=== PATIENT | male | born 1950 | race Caucasian/White ===

== ENCOUNTER → 2024-04-05 09:10 | Outpatient (REF) | payer MEDICARE, SELFPAY ==
[2024-04-05 12:35] LABS: % Basophils 0.6 % (0-2); % Eosinophils 2.9 % (0-6); % Immature Granulocytes 1.4 % (0-0.5); % Lymphocytes 42.3 % (20.5-51.1); % Monocytes 8.9 % (1.7-9.3); % Neutrophils 43.9 % (42.2-75.2); Absolute Eosinophils 0.2 10^3/uL (0-0.7); Absolute Immature Granulocytes 0.1 10^3/uL (0-0.05); Absolute Lymphocytes 2.7 10^3/uL (1.2-3.4); Absolute Monocytes 0.6 10^3/uL (0.1-0.6); Absolute Neutrophils 2.8 10^3/uL (1.4-6.5); Hematocrit 43.9 % (39.0-52.0); Hemoglobin 15.2 g/dL (13.0-18.0); Mean Corp Hgb Conc. 34.6 g/dL (33.0-37.0); Mean Corpuscular Hgb 31.4 pg (27.0-31.0); Mean Corpuscular Volume 90.7 fL (80.0-94.0); Mean Platelet Volume 9.8 fL (7.4-10.4); Nucleated Red Blood Cells % 0 % (-); Platelet Count 186 10^3/uL (130-400); Red Blood Cell Count 4.84 10^6/uL (4.70-6.10); Red Cell Dist. Width 12.9 % (11.5-14.5); White Blood Cell Count 6.3 10^3/uL (4.8-10.8)
[2024-04-05 12:51] LABS: Glycohemoglobin (HgbA1c) 6.3 % (4.0-5.6)
[2024-04-05 13:06] LABS: ALT (SGPT) 33 U/L (0-50); AST (SGOT) 35 U/L (17-59); Albumin 4.2 g/dl (3.5-5.0); Alkaline Phosphatase 56 U/L (38-126); Blood Urea Nitrogen 19 mg/dl (9-20); Calcium 9.2 mg/dl (8.4-10.2); Carbon Dioxide 29 mmol/L (22-30); Chloride 101 mmol/L (98-107); Glucose 115 mg/dl (70-99); HDL Cholesterol 53 mg/dl; LDL Cholesterol, Calculated 85 mg/dl; Potassium 4.5 mmol/L (3.5-5.1); Sodium 135 mmol/L (135-145); Total Bilirubin 0.8 mg/dl (0.2-1.3); Total Cholesterol 167 mg/dl (50-199); Total Protein 6.8 g/dl (6.3-8.2); Triglyceride 146 mg/dl (10-149); Uric Acid 7.2 mg/dl (3.5-8.5); Very Low Density Lipoprotein 29 mg/dl (0-30); eGFR > 60.00
== END ==
LOC: HWLAB 09:10
PROVIDERS: ATTENDING PHYSICIAN Internal Medicine
DX: E78.5 Hyperlipidemia, unspecified (principal); R73.01 Impaired fasting glucose; Z87.39 Personal history of other diseases of the musculoskeletal system and connective tissue
CPT/HCPCS: 36415; 80053; 80061; 83036; 84550; 85025

== ENCOUNTER → 2024-05-21 18:12 | Outpatient (REF) | payer MEDICARE, SELFPAY | LOC: PAVMRI 18:12 | PROVIDERS: ATTENDING PHYSICIAN Specialist; FAMILY PHYSICIAN Internal Medicine | DX: M99.63 Osseous and subluxation stenosis of intervertebral foramina of lumbar region (principal) | CPT/HCPCS: 72148 ==

== ENCOUNTER → 2024-09-22 13:35 | Outpatient (REF) | payer MEDICARE, SELFPAY ==
[2024-09-22 15:25] LABS: % Basophils 0.8 % (0-2); % Eosinophils 3.6 % (0-6); % Immature Granulocytes 0.4 % (0-0.5); % Neutrophils 47.2 % (42.2-75.2); Absolute Eosinophils 0.2 10^3/uL (0-0.7); Absolute Monocytes 0.5 10^3/uL (0.1-0.6); Absolute Neutrophils 2.4 10^3/uL (1.4-6.5); Hematocrit 38.7 % (39.0-52.0); Hemoglobin 13.7 g/dL (13.0-18.0); Mean Corp Hgb Conc. 35.4 g/dL (33.0-37.0); Mean Corpuscular Hgb 31.7 pg (27.0-31.0); Mean Corpuscular Volume 89.6 fL (80.0-94.0); Mean Platelet Volume 9.8 fL (7.4-10.4); Nucleated Red Blood Cells % 0 % (-); Platelet Count 170 10^3/uL (130-400); Red Blood Cell Count 4.32 10^6/uL (4.70-6.10); Red Cell Dist. Width 12.7 % (11.5-14.5)
[2024-09-22 15:36] LABS: Urine Albumin Negative (Neg - Trace); Urine Bilirubin Negative (Negative); Urine Character Clear (Clear); Urine Color Yellow; Urine Glucose Negative (Negative); Urine Ketone Negative (Negative); Urine Leukocyte Negative (Negative); Urine Nitrite Negative (Negative); Urine Occult Blood Negative (Negative); Urine Specific Gravity 1.015 (<1.030); Urine Urobilinogen Negative (Neg - 1+)
[2024-09-22 15:44] LABS: ALT (SGPT) 31 U/L (0-50); AST (SGOT) 42 U/L (17-59); Albumin 4.2 g/dl (3.5-5.0); Alkaline Phosphatase 46 U/L (38-126); Blood Urea Nitrogen 14 mg/dl (9-20); Calcium 9.2 mg/dl (8.4-10.2); Carbon Dioxide 27 mmol/L (22-30); Chloride 102 mmol/L (98-107); Glucose 141 mg/dl (70-99); Potassium 4.2 mmol/L (3.5-5.1); Sodium 141 mmol/L (135-145); Total Bilirubin 0.6 mg/dl (0.2-1.3); Total Protein 6.5 g/dl (6.3-8.2); eGFR > 60.00
[2024-09-22 16:03] LABS: NT-proBNP 327 pg/ml
== END ==
LOC: HWLAB 13:35
PROVIDERS: ATTENDING PHYSICIAN Nurse Practitioner Family
DX: R60.0 Localized edema (principal)
CPT/HCPCS: 36415; 80053; 81003; 83880; 85025

== ENCOUNTER → 2024-12-24 08:54 | Outpatient (REF) | payer MEDICARE, SELFPAY ==
[2024-12-24 12:21] LABS: ALT (SGPT) 31 U/L (0-50); AST (SGOT) 38 U/L (17-59); Albumin 4.2 g/dl (3.5-5.0); Alkaline Phosphatase 64 U/L (38-126); Blood Urea Nitrogen 13 mg/dl (9-20); Carbon Dioxide 30 mmol/L (22-30); Chloride 98 mmol/L (98-107); Glucose 137 mg/dl (70-99); HDL Cholesterol 52 mg/dl; LDL Cholesterol, Calculated 112 mg/dl; Potassium 4.4 mmol/L (3.5-5.1); Sodium 136 mmol/L (135-145); Total Cholesterol 190 mg/dl (50-199); Total Protein 6.9 g/dl (6.3-8.2); Triglyceride 133 mg/dl (10-149); Very Low Density Lipoprotein 26 mg/dl (0-30); eGFR > 60.00
[2024-12-24 12:55] LABS: Glycohemoglobin (HgbA1c) 6.5 % (4.0-5.6)
[2024-12-24 13:23] LABS: Microalbumin, Random Urine 0.6 mg/dl (0.6-1.7); Microalbumin/creatinine Ratio 7.7 mg/g
== END ==
LOC: HWLAB 08:54
PROVIDERS: ATTENDING PHYSICIAN Internal Medicine
DX: E78.5 Hyperlipidemia, unspecified (principal); E11.9 Type 2 diabetes mellitus without complications
CPT/HCPCS: 36415; 80053; 80061; 82043; 82570; 83036

== ENCOUNTER 2025-02-17 15:51 | Emergency (ER) | payer MEDICARE, SELFPAY ==
[2025-02-17 15:54] VITALS: BP 161/109
--- NOTE | 2025-02-17 16:36 | ED.GENMED ---
History of Present Illness
General
Chief Complaint: Nose Bleed
Source: patient
Exam Limitations: none
Time Seen by Provider: 02/17/25 16:23
Nursing documentation reviewed up to this point in time: agreed with
History of Present Illness
History of Present Illness:
Patient to ED for eval of spontaneous nosebleed. States bleeding started while at work. No history of nose bleeds. No history of trauma. He is on ELiquis. Brought to ED by spouse for eval.
Past History
Past History
ED Past Medical History: HTN, Hypercholesterolemia, Psychiatric (Anxiety) and Other (Factor 5 Leiden, PE may 2019)
ED Past Surgical History: Bowel resection and Orthopedic (Multiple orthopedic surgeries)
Patient has exhibited threatening behavior?: No
PSI?: No
Social History
Tobacco: Non-smoker
Alcohol: Occasional
Drug: None
Personal:
Living: with family
Review of Systems
Review of Systems
Allergies reviewed?: Yes
All Other Systems: ROS reviewed and negative except as documented in HPI and ROS
Constitutional: Reports no symptoms
EENT: Reports other (nose bleed)
Respiratory: Reports no symptoms
Cardiac: Reports no symptoms
ABD/GI: Reports no symptoms
: Reports no symptoms
Musculoskeletal: Reports no symptoms
Skin: Reports no symptoms
Neurological: Reports no symptoms
Psychiatric: Reports no symptoms
Phy Exam
General Physical Exam
General Presentation: well appearing
General age: appears stated age
General Skin: warm and dry
General Habitus: normal
General Mental: alert
General Hydration: appears well hydrated
ENT Exam
ENT Exam: other (Right ant. nose bleed.)
Musculoskeletal Exam
Musculoskeletal Exam: full ROM
Skin Exam
Skin Exam: normal color, warm/dry and no rash
Psychiatric Exam
Psychiatric Exam: normal mood/affect
Course
Orders/Labs/Results
Orders:
Orders
02/17/25 16:29
Tranexamic Acid 1,000 mg .ROUTE .STK-MED ONE
Vital Signs
Initial and Last Documented VS:
Initial Vital Signs
Pulse Resp BP Pulse Ox
89 18 161/109 95
02/17/25 15:54 02/17/25 15:54 02/17/25 15:54 02/17/25 15:54
Last Documented Vital Signs
Temp Pulse Resp BP Pulse Ox
98.1 F 75 18 145/90 93
02/17/25 16:50 02/17/25 18:18 02/17/25 15:54 02/17/25 18:18 02/17/25 18:18
Procedures
Nosebleed
Drug treatment: Lidocaine, Epinephrine and Tranexamic Acid
Treatment: local pressure applied and Silver nitrate cautery
Post treatment bleeding: none- good control
Additional information:
Patient packed with TXA soaked gauze. When gauze removed, bleeding started again. Repacked iwth epi/lido soaked gauze and bleeding stopped. Able to identify small site of beeding along distal medial septum. Cauterized with silver nitrate. No
further bleeding while in dept. He his discharged home and will follow up with ENT as needed. Given instructions on s/s to return to ED and he is agreeable to plan.
*Critical Care Note
Total Time (30-74mins, 75-104mins- exclusive of procedures): Not Applicable
ED Attending Note
-
Portions of this chart may have been created with voice recognition software.� Occasional wrong word or��sound alike� substitutions may have occurred due to the inherent limitations of voice recognition software.
Discharge Plan
Departure
Patient Disposition: Home (Routine Discharge)
Date of Disposition: 02/17/25
Time of Disposition: 18:18
Patient with high blood pressure during this ER visit?: No
Condition: Good
Covid-19: Not Applicable
Discharge Problem:
Acute anterior epistaxis
Instructions: Nosebleeds (DC)
Prescriptions:
No Action
atorvastatin 40 MG tablet
40 mg PO DAILY
escitalopram oxalate 10 MG tablet
10 mg PO DAILY
tramadol 50 mg tablet
50 mg PO Q6H PRN (Reason: moderate pain)
Patient Comments:
08/25/2022: last filled 07/01/22, 120 tabs for 30 days from [id number]
metoprolol succinate 25 mg tablet extended release 24 hr
25 mg PO DAILY
apixaban 5 mg Tablet
5 mg PO DAILY
valsartan 40 mg Tablet
40 mg PO DAILY
amoxicillin-pot clavulanate 875-125 mg tablet
1 tab PO Q12H Qty: 14 0RF
Referrals:
Yamileth Poole MD [Family Provider] -
Carroll Serrano MD [Active] - As needed
Activity Restrictions/Additional Instructions:
Return to the emergency department for any bleeding that does not stop within 15-20 minutes of applying pressure
Interventions
Interventions:
*Risk Screen - Suicide Last Done: 02/17/25 15:54
*General Assessment Last Done: 02/17/25 15:54
*Neglect/Abuse Screening Last Done: 02/17/25 15:54
*ED- Fall Risk Assessment Last Done: 02/17/25 18:22
*ED COVID-19 Vaccine History Last Done: 02/17/25 15:54
*Nursing Disposition Last Done: 02/17/25 18:22
ED-EENT Assessment Last Done: 02/17/25 17:32
Discharge Date and Time
Print Language: MARSHALLESE
[2025-02-17 17:32] VITALS: BP 154/93
[2025-02-17 18:18] VITALS: BP 145/90
== END 2025-02-17 18:23 | disposition home or self-care (01) ==
LOC: EMR 15:51
PROVIDERS: EMERGENCY PHYSICIAN Emergency Medicine; FAMILY PHYSICIAN Internal Medicine
DX: R04.0 Epistaxis (principal); I10 Essential (primary) hypertension; E78.00 Pure hypercholesterolemia, unspecified; D68.51 Activated protein C resistance; Z79.01 Long term (current) use of anticoagulants
CPT/HCPCS: 30901; 99282

== ENCOUNTER → 2025-02-28 12:23 | Outpatient (REF) | payer MEDICARE, SELFPAY | LOC: HWRAD 12:23 | PROVIDERS: ATTENDING PHYSICIAN Nurse Practitioner Family; FAMILY PHYSICIAN Internal Medicine | DX: R06.09 Other forms of dyspnea (principal) | CPT/HCPCS: 71046 ==

== ENCOUNTER → 2025-03-07 15:47 | Outpatient (REF) | payer MEDICARE, SELFPAY | LOC: HWRCS 15:47 | PROVIDERS: ATTENDING PHYSICIAN Nurse Practitioner Family | DX: R06.09 Other forms of dyspnea (principal) | CPT/HCPCS: 93306 ==

== ENCOUNTER → 2025-03-23 12:54 | Outpatient (REF) | payer MEDICARE, SELFPAY ==
[2025-03-23 15:58] LABS: % Basophils 0.5 % (0-2); % Eosinophils 1.9 % (0-6); % Immature Granulocytes 0.5 % (0-0.5); % Lymphocytes 24.8 % (20.5-51.1); % Monocytes 7.8 % (1.7-9.3); % Neutrophils 64.5 % (42.2-75.2); Absolute Eosinophils 0.2 10^3/uL (0-0.7); Absolute Monocytes 0.6 10^3/uL (0.1-0.6); Absolute Neutrophils 5.1 10^3/uL (1.4-6.5); Hematocrit 38.8 % (39.0-52.0); Hemoglobin 13.5 g/dL (13.0-18.0); Mean Corp Hgb Conc. 34.8 g/dL (33.0-37.0); Mean Corpuscular Hgb 31.7 pg (27.0-31.0); Mean Corpuscular Volume 91.1 fL (80.0-94.0); Mean Platelet Volume 9.4 fL (7.4-10.4); Nucleated Red Blood Cells % 0 % (-); Platelet Count 226 10^3/uL (130-400); Red Blood Cell Count 4.26 10^6/uL (4.70-6.10); Red Cell Dist. Width 13.9 % (11.5-14.5); White Blood Cell Count 7.9 10^3/uL (4.8-10.8)
[2025-03-23 16:05] LABS: Blood Urea Nitrogen 13 mg/dl (9-20)
== END ==
LOC: RAD 12:54
PROVIDERS: ATTENDING PHYSICIAN Internal Medicine
DX: R68.84 Jaw pain (principal); R22.0 Localized swelling, mass and lump, head; R25.2 Cramp and spasm; Z01.812 Encounter for preprocedural laboratory examination
CPT/HCPCS: 36415; 70491; 82565; 84520; 85025; Q9967

== ENCOUNTER → 2025-04-18 13:05 | Outpatient (REF) | payer MEDICARE, SELFPAY ==
[2025-04-18 15:40] LABS: % Basophils 0.7 % (0-2); % Immature Granulocytes 0.5 % (0-0.5); % Lymphocytes 31.3 % (20.5-51.1); % Monocytes 6.7 % (1.7-9.3); % Neutrophils 58.8 % (42.2-75.2); Absolute Eosinophils 0.1 10^3/uL (0-0.7); Absolute Lymphocytes 1.9 10^3/uL (1.2-3.4); Absolute Monocytes 0.4 10^3/uL (0.1-0.6); Absolute Neutrophils 3.6 10^3/uL (1.4-6.5); Hematocrit 39.7 % (39.0-52.0); Hemoglobin 13.6 g/dL (13.0-18.0); INR 0.98; Mean Corp Hgb Conc. 34.3 g/dL (33.0-37.0); Mean Corpuscular Hgb 31.1 pg (27.0-31.0); Mean Corpuscular Volume 90.6 fL (80.0-94.0); Mean Platelet Volume 9.8 fL (7.4-10.4); Nucleated Red Blood Cells % 0 % (-); PT 13.3 Sec (11.4-14.6); Platelet Count 186 10^3/uL (130-400); Red Blood Cell Count 4.38 10^6/uL (4.70-6.10); Reticulocyte Count 2.2 % (0.4-2.8); White Blood Cell Count 6.1 10^3/uL (4.8-10.8)
[2025-04-18 15:41] LABS: APTT 27.6 Sec (23.4-35.0)
[2025-04-18 16:39] LABS: Iron 115 ug/dl (49-181)
[2025-04-18 16:48] LABS: Percent Saturation 41 % (20-50); Total Iron Binding Capacity 274 ug/dl (261-462)
[2025-04-18 17:15] LABS: Ferritin 99.8 ng/ml (17.9-464.0)
== END ==
LOC: HWLAB 13:05
PROVIDERS: ATTENDING PHYSICIAN Internal Medicine Hematology & Oncology; FAMILY PHYSICIAN Internal Medicine
DX: D68.9 Coagulation defect, unspecified (principal); I82.4Z2 Acute embolism and thrombosis of unspecified deep veins of left distal lower extremity; I26.99 Other pulmonary embolism without acute cor pulmonale
CPT/HCPCS: 36415; 81240; 81241; 82728; 83540; 83550; 85025; 85045; 85240; 85245; 85246; 85247; 85300; 85305; 85610; 85613; 85730; 86146; 86147

== ENCOUNTER → 2025-06-21 08:55 | Outpatient (REF) | payer MEDICARE, SELFPAY ==
[2025-06-21 12:40] LABS: ALT (SGPT) 30 U/L (0-50); AST (SGOT) 34 U/L (17-59); Albumin 4.3 g/dl (3.5-5.0); Alkaline Phosphatase 54 U/L (38-126); Blood Urea Nitrogen 16 mg/dl (9-20); Calcium 8.8 mg/dl (8.4-10.2); Carbon Dioxide 29 mmol/L (22-30); Chloride 105 mmol/L (98-107); Glucose 138 mg/dl (70-99); HDL Cholesterol 40 mg/dl; LDL Cholesterol, Calculated 108 mg/dl; Potassium 4.5 mmol/L (3.5-5.1); Sodium 139 mmol/L (135-145); Total Protein 6.8 g/dl (6.3-8.2); Very Low Density Lipoprotein 21 mg/dl (0-30); eGFR > 60.00
[2025-06-21 13:01] LABS: Glycohemoglobin (HgbA1c) 6.9 % (4.0-5.6)
== END ==
LOC: HWLAB 08:55
PROVIDERS: ATTENDING PHYSICIAN Internal Medicine
DX: E66.811 Obesity, class 1 (principal); E11.9 Type 2 diabetes mellitus without complications; E78.5 Hyperlipidemia, unspecified
CPT/HCPCS: 36415; 80053; 80061; 83036; 84443

== ENCOUNTER → 2025-07-05 11:42 | Outpatient (REF) | payer MEDICARE, SELFPAY ==
[2025-07-05 15:48] LABS: Hematocrit 41.9 % (39.0-52.0); Hemoglobin 14.1 g/dL (13.0-18.0); Mean Corp Hgb Conc. 33.7 g/dL (33.0-37.0); Mean Corpuscular Volume 88.2 fL (80.0-94.0); Nucleated Red Blood Cells % 0 % (-); Platelet Count 166 10^3/uL (130-400); Red Cell Dist. Width 13.2 % (11.5-14.5)
[2025-07-05 15:58] LABS: C-Reactive Protein < 5.00 mg/L (0.0-10.00)
[2025-07-05 16:14] LABS: Uric Acid 7.7 mg/dl (3.5-8.5)
== END ==
LOC: HWRAD 11:42
PROVIDERS: ATTENDING PHYSICIAN Internal Medicine
DX: M10.9 Gout, unspecified (principal)
CPT/HCPCS: 36415; 73630; 84550; 85025; 85652; 86140

== ENCOUNTER 2025-08-14 16:00 | Emergency (ER) | payer MEDICARE, SELFPAY ==
[2025-08-14 16:03] VITALS: BP 133/96
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
== END 2025-08-14 17:57 | disposition home or self-care (01) ==
LOC: EMR 16:00
PROVIDERS: EMERGENCY PHYSICIAN Emergency Medicine; FAMILY PHYSICIAN Internal Medicine
DX: S82.832A Other fracture of upper and lower end of left fibula, initial encounter for closed fracture (principal); I48.92 Unspecified atrial flutter; M79.89 Other specified soft tissue disorders; V18.0XXA Pedal cycle driver injured in noncollision transport accident in nontraffic accident, initial encounter; Y93.55 Activity, bike riding; R00.0 Tachycardia, unspecified; F41.9 Anxiety disorder, unspecified; D68.51 Activated protein C resistance; E78.00 Pure hypercholesterolemia, unspecified; I10 Essential (primary) hypertension; Z98.0 Intestinal bypass and anastomosis status; Z79.899 Other long term (current) drug therapy
CPT/HCPCS: 99283; 29515; 73610; 93005

== ENCOUNTER → 2025-09-02 14:34 | Outpatient (REF) | payer MEDICARE, SELFPAY | LOC: RAD 14:34 | PROVIDERS: ATTENDING PHYSICIAN Student in an Organized Health Care Education/Training Program; FAMILY PHYSICIAN Internal Medicine | DX: M79.662 Pain in left lower leg (principal) | CPT/HCPCS: 93971 ==